=== PATIENT | male | born 1985 | race Two or more races ===

== ENCOUNTER 2020-11-19 18:20 | Emergency (ER) | payer MEDICAID ==
[~2020-11-19] VITALS: Ht 165.1 cm; Wt 86.4 kg
[2020-11-19 18:26] VITALS: BP 159/92
[2020-11-19] MEDS ORDERED: ketorolac trometh. 30mg/ml inj. IM ONE (20:15)
[2020-11-19] MEDS ORDERED: IBUP-1986 PO (20:18)
[2020-11-19] MEDS ORDERED: ketorolac tromethamine 15mg/ml inj. IM ONE (20:25)
== END 2020-11-19 20:41 | disposition home or self-care (01) ==
LOC: ER 18:22
DX: S39.002A Unspecified injury of muscle, fascia and tendon of lower back, initial encounter (principal); M54.89 Other dorsalgia; F17.200 Nicotine dependence, unspecified, uncomplicated; Z79.899 Other long term (current) drug therapy; W01.0XXA Fall on same level from slipping, tripping and stumbling without subsequent striking against object, initial encounter; Y93.89 Activity, other specified; Y92.89 Other specified places as the place of occurrence of the external cause; Y99.8 Other external cause status
CPT/HCPCS: 71046; 96372; 99284; J1885

== ENCOUNTER 2020-11-23 08:45 | Emergency (ER) | payer MEDICAID ==
[~2020-11-23] VITALS: Ht 165.1 cm; Wt 86.4 kg
[~2020-11-23 08:45] MED LIST: IBUP-1986 PO
[2020-11-23 08:50] VITALS: BP 125/84
[2020-11-23] MEDS ORDERED: NAPR-56 PO (09:55)
[2020-11-23] MEDS ORDERED: CYCL-1 PO (09:55)
[2020-11-23] MEDS ORDERED: triamcinolone acetonide 40mg/ml inj IM ONE (09:55)
[2020-11-23] MEDS ORDERED: BUPIVAcaine/PF 2.5 mg/ml (0.25%) 30ml vial IJ ONE (09:55)
== END 2020-11-23 10:40 | disposition home or self-care (01) ==
LOC: ER 08:45
DX: S39.012A Strain of muscle, fascia and tendon of lower back, initial encounter (principal); M62.838 Other muscle spasm; Z79.899 Other long term (current) drug therapy; W01.0XXA Fall on same level from slipping, tripping and stumbling without subsequent striking against object, initial encounter; Y93.89 Activity, other specified; Y92.89 Other specified places as the place of occurrence of the external cause; Y99.8 Other external cause status
CPT/HCPCS: 20552; 99284